=== PATIENT | female | born 1990 | race Hispanic/Latino ===

== ENCOUNTER 2023-12-10 07:14 | Day surgery (SDC) | payer MEDICAID ==
[~2023-12-10] VITALS: Ht 147.3 cm; Wt 125.6 kg
[2023-12-10] VITALS (15 sets, daily range): BP systolic 106–128; BP diastolic 58–95; PULSE 79–96; RESP 15–16
[~2023-12-10 07:14] MED LIST: BUPR-113 PO; BUPR-317 PO; BUSP30TA2 PO; CHOL12509 PO; DIVA500T2 PO; GABA300S3 PO; GABA600T10 PO; IBUP-2070 PO; LEMB10TA PO; LURA120T PO; OXCA300T46 PO; PALI546S IM; TOPI25TA42 PO
[2023-12-10] MEDS: 0.9%NACL 1000ML 1,000 ML IV ONE (07:39)
[2023-12-10] MEDS ORDERED: GABA300T28 PO (07:45)
[2023-12-10] MEDS ORDERED: LIDOCAINE PF 100MG/5ML (2%) SYRINGE 5ML ONE (07:59)
[2023-12-10] MEDS ORDERED: PROPOFOL 10 MG/ML 20ML VIAL IV ONE (07:59)
== END 2023-12-10 09:45 | disposition home or self-care (01) ==
LOC: DAH 07:14
PROVIDERS: ATTEND Surgery
DX: K91.1 Postgastric surgery syndromes (principal); E66.01 Morbid (severe) obesity due to excess calories; K21.9 Gastro-esophageal reflux disease without esophagitis; K31.89 Other diseases of stomach and duodenum; F41.9 Anxiety disorder, unspecified; G47.33 Obstructive sleep apnea (adult) (pediatric); F32.A Depression, unspecified; J45.909 Unspecified asthma, uncomplicated; F17.210 Nicotine dependence, cigarettes, uncomplicated; Z82.49 Family history of ischemic heart disease and other diseases of the circulatory system; Z68.43 Body mass index [BMI] 50.0-59.9, adult; Z83.3 Family history of diabetes mellitus; Z82.5 Family history of asthma and other chronic lower respiratory diseases; Z79.84 Long term (current) use of oral hypoglycemic drugs; Z79.1 Long term (current) use of non-steroidal anti-inflammatories (NSAID); Z88.8 Allergy status to other drugs, medicaments and biological substances; Z98.0 Intestinal bypass and anastomosis status; Z98.891 History of uterine scar from previous surgery; Z98.890 Other specified postprocedural states
CPT/HCPCS: 81025; 43270; 82948; J7030 ×2; J3490 ×2; A4620; A4215 ×2; A4223; A7002; A4221; A4663; A4606; 43235; J2001; J2704

== ENCOUNTER 2024-01-07 07:44 | Day surgery (SDC) | payer MEDICAID ==
[~2024-01-07] VITALS: Ht 147.3 cm; Wt 124.7 kg
[2024-01-07] VITALS (8 sets, daily range): BP systolic 120–129; BP diastolic 67–80; PULSE 78–94; RESP 12–16
[~2024-01-07 07:44] MED LIST changes: -GABA300S3 PO; +GABA300T28 PO
[2024-01-07] MEDS ORDERED: DIVA500T2 PO (08:10)
[2024-01-07] MEDS ORDERED: TOPI100T31 PO (08:17)
[2024-01-07] MEDS ORDERED: METF-444 PO (08:17)
[2024-01-07] MEDS ORDERED: PHEN15CA61 PO (08:18)
[2024-01-07] MEDS ORDERED: 0.9%NACL 1000ML 1,000 ML IV ONE (08:19)
[2024-01-07] MEDS ORDERED: PROPOFOL 10 MG/ML 20ML VIAL IV ONE (08:28)
== END 2024-01-07 08:50 ==
LOC: DAH 07:44
PROVIDERS: ATTEND Surgery
DX: E66.01 Morbid (severe) obesity due to excess calories (principal); K22.89 Other specified disease of esophagus; K30 Functional dyspepsia; K31.89 Other diseases of stomach and duodenum; K91.1 Postgastric surgery syndromes; J45.909 Unspecified asthma, uncomplicated; F32.A Depression, unspecified; F41.9 Anxiety disorder, unspecified; F17.210 Nicotine dependence, cigarettes, uncomplicated; Z68.43 Body mass index [BMI] 50.0-59.9, adult; Z98.84 Bariatric surgery status; Z82.49 Family history of ischemic heart disease and other diseases of the circulatory system; Z83.3 Family history of diabetes mellitus; Z82.5 Family history of asthma and other chronic lower respiratory diseases; Z79.1 Long term (current) use of non-steroidal anti-inflammatories (NSAID); Z79.84 Long term (current) use of oral hypoglycemic drugs; Z88.8 Allergy status to other drugs, medicaments and biological substances; Z98.891 History of uterine scar from previous surgery; Z98.890 Other specified postprocedural states
CPT/HCPCS: 84703; 36415; 43270; J7030 ×2; J3490; A4620; A4215 ×2; A4223; A7002; A4222; A4221; A4663; A4606; J2704

== ENCOUNTER 2024-03-31 06:48 | Day surgery (SDC) | payer MEDICAID ==
[~2024-03-31] VITALS: Ht 147.3 cm; Wt 117.9 kg
[2024-03-31] VITALS (12 sets, daily range): BP systolic 110–135; BP diastolic 55–89; PULSE 60–92; RESP 15–19
[~2024-03-31 06:48] MED LIST changes: -BUPR-317 PO; +BUPR-561 PO; -GABA600T10 PO; -IBUP-2070 PO; -OXCA300T46 PO; +PHEN15CA61 PO; +TOPI100T31 PO; -TOPI25TA42 PO
[2024-03-31] MEDS: 0.9%NACL 1000ML 1,000 ML IV ONE (07:48)
[2024-03-31] MEDS ORDERED: PROPOFOL 10 MG/ML 20ML VIAL IV ONE (08:32)
[2024-03-31] MEDS ORDERED: LIDOCAINE PF 100MG/5ML (2%) SYRINGE 5ML ONE (08:32)
== END 2024-03-31 11:00 | disposition home or self-care (01) ==
LOC: SUH 06:48 → DAH 06:48 → SUH 11:00
PROVIDERS: ATTEND Pediatrics
DX: K91.1 Postgastric surgery syndromes (principal); K22.89 Other specified disease of esophagus; D50.9 Iron deficiency anemia, unspecified; E66.01 Morbid (severe) obesity due to excess calories; K29.50 Unspecified chronic gastritis without bleeding; K57.50 Diverticulosis of both small and large intestine without perforation or abscess without bleeding; J45.909 Unspecified asthma, uncomplicated; F41.9 Anxiety disorder, unspecified; F32.A Depression, unspecified; Z79.01 Long term (current) use of anticoagulants; Z79.899 Other long term (current) drug therapy; Z98.890 Other specified postprocedural states; Z98.84 Bariatric surgery status; Z98.891 History of uterine scar from previous surgery; Z68.43 Body mass index [BMI] 50.0-59.9, adult
CPT/HCPCS: 81025; 43270; J7030 ×2; J3490 ×2; A4620; A4215; A4223; A7002; A4222; A4221; A4663; A4606; J2001; J2704

== ENCOUNTER 2024-08-25 06:55 | Day surgery (SDC) | payer MEDICAID ==
[~2024-08-25] VITALS: Ht 147.3 cm; Wt 109.8 kg
[2024-08-25] VITALS (14 sets, daily range): BP systolic 99–143; BP diastolic 40–84; PULSE 60–69; RESP 14–19; TEMP 96.6–97.8
[2024-08-25] MEDS ORDERED: LEMB10TA PO (10:20)
[2024-08-25] MEDS ORDERED: DIVA500T2 PO (10:20)
[2024-08-25] MEDS ORDERED: OXCA300T46 PO (10:20)
[2024-08-25] MEDS ORDERED: METF-444 PO (10:22)
[2024-08-25] MEDS: 0.9%NACL 1000ML 1,000 ML IV ONE (10:23)
[2024-08-25] MEDS ORDERED: rocuRONium bROMide 10MG/1ML 5ML VL ONE ×2 (12:31→13:49)
[2024-08-25] MEDS ORDERED: LIDOCAINE PF 100MG/5ML (2%) SYRINGE 5ML ONE (12:31)
[2024-08-25] MEDS ORDERED: FENTanyl CITRate PF 50 MCG/1 ML 2ML VIAL ONE (12:32)
[2024-08-25] MEDS ORDERED: SUCCINYLCHOLINE CHLORIDE 20 MG/ML 10 ML VIAL ONE (12:33)
[2024-08-25] MEDS ORDERED: proPOFol 10 MG/ML 20ML VIAL IV ONE (12:35)
[2024-08-25] MEDS ORDERED: ondanSETRON 4MG INJ ONE (12:52)
[2024-08-25] MEDS ORDERED: GLYCOPYRROLATE 0.2 MG/ML 5 ML VIAL ONE (12:53)
[2024-08-25] MEDS ORDERED: NEOSTIGMINE METHYLSULFATE 1MG/ML IV ONE (12:53)
[2024-08-25] MEDS ORDERED: dexaMETHasone SOD PHOSPHATE 10MG/ML 1ML VIAL ONE (12:53)
== END 2024-08-25 15:25 | disposition home or self-care (01) ==
LOC: DAH 06:55
PROVIDERS: ATTEND Surgery
DX: K91.1 Postgastric surgery syndromes (principal); E66.01 Morbid (severe) obesity due to excess calories; J45.909 Unspecified asthma, uncomplicated; F41.9 Anxiety disorder, unspecified; F32.A Depression, unspecified; R73.03 Prediabetes; Z98.890 Other specified postprocedural states; Z98.84 Bariatric surgery status; Z98.891 History of uterine scar from previous surgery; Z68.42 Body mass index [BMI] 45.0-49.9, adult; Z79.899 Other long term (current) drug therapy
CPT/HCPCS: 84703; 36415; 82948 ×2; 43270; C9901; J3010; J1100; J0330; J7030 ×2; J3490 ×4; J2003; J2405; J2710; A4215 ×2; A4223; A4657 ×2; A7002; A4222; A4221; A4663; A4606; J2704

== ENCOUNTER 2025-05-25 08:10 | Day surgery (SDC) | payer MEDICAID ==
[2025-05-25] VITALS (13 sets, daily range): BP systolic 107–134; BP diastolic 60–78; PULSE 54–81; RESP 15–20; TEMP 97.1–97.5
[~2025-05-25] VITALS: Ht 147.3 cm; Wt 103.9 kg
[~2025-05-25 08:10] MED LIST changes: -BUPR-561 PO; +BUPR-721 PO; +METF-444 PO; +OXCA300T46 PO
[2025-05-25] MEDS ORDERED: OXCA600T3 PO (08:53)
[2025-05-25] MEDS ORDERED: PHEN-488 PO (08:53)
[2025-05-25] MEDS ORDERED: ALBU18HF7 IH (08:54)
[2025-05-25] MEDS: 0.9%NACL 1000ML 1,000 ML IV ONE (08:56)
[2025-05-25] MEDS ORDERED: LIDOCAINE PF 100MG/5ML (2%) SYRINGE 5ML ONE (10:05)
--- NOTE | 2025-05-25 11:40 | NUR ---
Full and complete discharge instructions given to Patient and Family both verbally and in writing. Explained GI procedure precautions and follow up. All questions answered. PIV removed with catheter tip intact. Home with Family W/C to POV.
== END 2025-05-25 11:40 | disposition home or self-care (01) ==
LOC: DAH 08:10 → ENDO 08:10
PROVIDERS: ATTEND Surgery
DX: K30 Functional dyspepsia (principal); E66.01 Morbid (severe) obesity due to excess calories; K22.89 Other specified disease of esophagus; K91.1 Postgastric surgery syndromes; Z98.0 Intestinal bypass and anastomosis status; F41.9 Anxiety disorder, unspecified; F32.A Depression, unspecified; J45.909 Unspecified asthma, uncomplicated; R73.03 Prediabetes; Z88.8 Allergy status to other drugs, medicaments and biological substances; Z98.84 Bariatric surgery status; Z79.84 Long term (current) use of oral hypoglycemic drugs; Z79.899 Other long term (current) drug therapy
CPT/HCPCS: 43270; 81025; J7030; J2003; J2704; A4620; C1726; A4215 ×2; A4223; A4222; A4221; A4663; A4606; 43235; J3490